=== PATIENT | female | born 1995 | race Asian ===

== ENCOUNTER 2023-04-26 17:23 | Outpatient (AMB) | payer BC, SELFPAY ==
[2023-04-26 17:27] VITALS: BP 102/68; BMI 20.1
--- NOTE | 2023-04-26 17:27 | A.OFFPC_ITS ---
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 Required: No Accompanied by: Self / Same As Patient Allergies No Known Allergies Allergy (Verified 04/26/23 17:31) Medication List - Last Reconciled 04/26/23 by Maria Teresa Mathews MD No Known Home Meds Tobacco use date assessed: 04/26/23 Dental Screening Dental Screen Date: 04/26/23 Did you have a dental visit in the last 12 months?: No Did you have a dental problem in the last 6 months where you did not have access to dental care?: No Was dental information given to patient?: Patient has dentist HPI HPI Comments History of Present Illness Details This is a 27-year-old female that comes for her physical exam. No luigi st pain or shortness of breath. Last Pap smear was a year ago while she was . Doing well. [facility] Surgical History No pertinent past surgical history Family History Mother Breast cancer, Onset Age: 55 Father Arthritis Social History Housing: Apartment Alcohol intake: never Patient Tobacco Use Status: Never used Tobacco e-Cigarette/Vaping Use: Never Used Second Hand Smoke Exposure: No service: No Current occupational status: unemployed Cognitive needs: No Hearing needs: No Vision needs: No Questionnaire PHQ-9 Over the last 2 weeks, how often have you been bothered by any of the following problems? 1. Little interest or pleasure in doing things: not at all 2. Feeling down, depressed, or hopeless: not at all 3. Trouble falling or staying asleep, or sleeping too much: not at all 4. Feeling tired or having little energy: not at all 5. Poor appetite or overeating: not at all 6. Feeling bad about yourself - or that you are a failure or have let yourself or your family down: not at all 7. Trouble concentrating on things, such as reading the newspaper or watching television: not at all 8. Moving or speaking so slowly that other people could have noticed. Or the opposite - being so fidgety or restless that you have been moving around a lot more than usual: not at all 9. Thoughts that you would be better off or of hurting yourself in some way: not at all Total score: 0 Depression Screening Interpretation: Negative Depression Screening Done: Yes 76568 - PHQ-9 Billing: Yes Source: Developed by Drs. Jose E James, Lucy Oconnell, Diomedes Ash and colleagues, with an educational oriana from [employer]. Thrive Questionnaire Date Thrive assessed: 04/26/23 I am a: Patient What is your living situation today?: I have a steady place to live Within the past 12 months, did the food you bought not last and you didn't have the money to get more?: Never true Within the past 12 months, did you worry whether your food would run out before you got money to buy more?: Never true Do you have trouble paying for medicines?: No Do you have trouble getting transportation to medical appointments?: No Do you have trouble paying your heating and electricity bill?: No Do you have trouble taking care of your child, family member or friend?: No Do you have trouble with day-to-day activities such as bathing, preparing meals, shopping, managing finances, etc.?: No Are you currently unemployed and looking for a job?: No Are you interested in more education?: No Please select the resources that you would like help with: None Currently or been in a relationship where the following occur: no concerns reported AUDIT C Alcohol Use Questionnaire (AUDIT-C) 1. How often do you have a drink containing alcohol?: Never Total Score: 0 JOHNNY-7 AMB Questionnaire JOHNNY-7 Date JOHNNY - 7 assessed: 04/26/23 Feeling nervous, anxious, or on edge: 0 = Not at all Not being able to stop or control worryin = Not at all Worrying too much about different things: 0 = Not at all Trouble relaxin = Not at all Being so restless that it is hard to sit still: 0 = Not at all Becoming easily annoyed or irritable: 0 = Not at all Feeling afraid as if something awful might happen: 0 = Not at all Total JOHNNY-7 score (0-4 normal; 5-9 mild; 10-14 moderate; 15-21 severe): 0 Source: Developed by Drs. Jose E James, Lucy Oconnell, Diomedes Ash and colleagues, with an educational oriana from [employer]. JOHNNY-7 Assessment Billing JOHNNY-7 Assessment Tool: JOHNNY-7 Assessment 04775 Review of Systems Const All systems reviewed & are unremarkable except as noted in HPI and below Eyes Reports no additional complaints, Denies change in vision and Denies other visual disturbances Card Denies chest pain at rest, Denies chest pain with activity, Denies edema, Denies irregular heart rhythm, Denies claudication, Denies dyspnea, Denies dyspnea on exertion, Denies orthopnea, Denies paroxysmal nocturnal dyspnea and Denies slow heart rate Resp Denies cough, Denies dyspnea and Denies dyspnea on exertion GI Denies abdominal pain, Denies change in bowel habits, Denies excessive flatus, Denies nausea and Denies vomiting Denies urinary incontinence, Denies urinary hesitancy and Denies urinary urgency Musc Denies abnormal gait, Denies atrophy, Denies deformity and Denies limited range of motion Skin/Breast Denies bleeding lesions, Denies changing lesions and Denies rash Neuro Denies abnormal gait and Denies lack of coordination Physical exam (Primary Care) Vital Signs: Last Vital Signs BP 102/68 04/26/23 17:27 BMI result Body Mass Index 20.1 Tobacco/Smoking Status: Tobacco use Status Tobacco use date assessed 04/26/23 04/26/23 17:32 Patient Tobacco Use Status Never used Tobacco 04/26/23 17:32 e-Cigarette/Vaping Use Never Used 04/26/23 17:32 PHQ-9: PHQ-9 Score PHQ-9: Total score 0 04/26/23 17:34 Depression Screening Interpretation: Negative Thrive Assessment: Date of Thrive Assessment Date Thrive assessed 04/26/23 04/26/23 17:32 Currently or been in a relationship where the following occur: no concerns re ported Const Orientation/consciousness: patient oriented x3 HENMT Head: Yes normal to inspection, Yes normocephalic and Yes atraumatic Ears: external ears normal Eyes General: appearance normal, both eyes and all related structures Eyelids: Yes eyelids normal Conjunctivae: conjunctivae normal Neck Neck: Yes normal visual inspection and Yes supple Resp Effort & Inspection: normal respiratory effort Auscultation: clear to auscultation bilaterally Cardio Jugular venous distension: no JVD Rate: regular rate Rhythm: regular rhythm Heart sounds: S1 normal heart sound present and S2 normal heart sound present GI Inspection: Yes normal to inspection Palpation (GI): Soft to palpation and nontender Auscultation: normal bowel sounds Skin General skin exam: no rashes or lesions noted Neuro General: patient oriented x3 and no focal motor deficits Extrem General: Yes full ROM Psych Appearance: grossly normal Office Procedures Flu Questionnaire Does the patient have a severe egg allergy?: No Immunizations flu vacc [id number] 6mos up(PF) 60 mcg(15 mcgx4)/0.5 mL IM syringe Performing Provider: Maria Teresa Mathews MD Performing Location: [facility] Documented (not given) by: CORNELIO Mckay on 04/26/23 17:33 Reason Not Given: Patient Refused Assessment and Plan Assessment & Plan (1) Physical exam: Code(s): Z00.00 - Encounter for general adult medical examination without abnormal findings Plan: Repeat in a year. Orders: Orders Influenza [id number] Immunization Today Z23 - Encounter for immunization Comprehensive [place]. Panel Fast Today Z00.00 - Encounter for general adult medical examination without abnormal findings Lipid Panel Today Z00.00 - Encounter for general adult medical examination without abnormal findings Coding Level of Care Code Est Pt Prev Care 18-39y(20894) Diagnoses Physical exam Z00.00 Additional Codes JOHNNY-7 Assessment Billing - JOHNNY-7 Assessment Tool: JOHNNY-7 Assessment 01999 ([id number]) Time Spent (min) 31
== END 2023-04-26 17:39 | disposition home or self-care (01) ==
LOC: HO.HMGH 17:23
PROVIDERS: PCP Internal Medicine; Visit Provider Internal Medicine
DX: Z00.00 Encounter for general adult medical examination without abnormal findings (principal)
CPT/HCPCS: 99395

== ENCOUNTER 2024-12-30 14:58 | Outpatient (AMB) | payer BC, SELFPAY ==
--- NOTE | 2024-12-30 15:02 | MHC.PC.OV ---
Vital Signs 12/30/24 15:03 Height 5 ft 1.5 in Weight 127 lb BMI 23.6 BP 92/64 Blood Pressure Location Lt brachial Position Sitting Intake Visit Reasons: numbness R side of skull Die Stamper Required: No Accompanied by: Self / Same As Patient Allergies No Known Allergies Allergy (Verified 12/30/24 15:12) Medication List - Last Reconciled 12/30/24 by Maria Teresa Mathews MD No Known Home Meds Tobacco use date assessed: 12/30/24 Dental Screening Dental Screen Date: 12/30/24 Did you have a dental visit in the last 12 months?: Yes Did you have a dental problem in the last 6 months where you did not have access to dental care?: No Was dental information given to patient?: Patient has dentist HPI HPI Comments History of Present Illness Details The patient is a 29-year-old female presenting with numbness in the right parietal area. The numbness has been present for a couple of years and is sometimes associated with colder weather. The patient denies any associated weakness, blurry vision, or tingling. The numbness is not constant and does not seem to be related to hairstyles or headwear. The patient has no history of allergies to medications or contrast, and she is not currently taking any medications. She recently had a baby five months ago and is currently nursing. [facility] Surgical History No pertinent past surgical history Family History Mother Breast cancer, Onset Age: 55 Father Arthritis Social History Housing: Apartment Alcohol intake: never Patient Tobacco Use Status: Never used Tobacco e-Cigarette/Vaping Use: Never Used Second Hand Smoke Exposure: No service: No Current occupational status: unemployed Cognitive needs: No Hearing needs: No Vision needs: No Questionnaire PHQ-9 Over the last 2 weeks, how often have you been bothered by any of the following problems? 1. Little interest or pleasure in doing things: not at all 2. Feeling down, depressed, or hopeless: not at all 3. Trouble falling or staying asleep, or sleeping too much: not at all 4. Feeling tired or having little energy: not at all 5. Poor appetite or overeating: not at all 6. Feeling bad about yourself - or that you are a failure or have let yourself or your family down: not at all 7. Trouble concentrating on things, such as reading the newspaper or watching television: not at all 8. Moving or speaking so slowly that other people could have noticed. Or the opposite - being so fidgety or restless that you have been moving around a lot more than usual: not at all 9. Thoughts that you would be better off or of hurting yourself in some way: not at all Total score: 0 Depression Screening Interpretation: Negative Depression Screening Done: Yes 89508 - PHQ-9 Billing: Yes Source: Developed by Drs. Jose E James, Lucy Oconnell, Diomedes Ash and colleagues, with an educational oriana from [employer]. Thrive Questionnaire Date Thrive assessed: 12/28/24 I am a: Patient What is your living situation today?: I have a steady place to live Within the past 12 months, did the food you bought not last and you didn't have the money to get more?: Never true Within the past 12 months, did you worry whether your food would run out before you got money to buy more?: Never true Do you have trouble paying for medicines?: No Do you have trouble getting transportation to medical appointments?: No Do you have trouble paying your heating and electricity bill?: No Do you have trouble taking care of your child, family member or friend?: No Do you have trouble with day-to-day activities such as bathing, preparing meals, shopping, managing finances, etc.?: No Are you currently unemployed and looking for a job?: Yes Are you interested in more education?: No Please select the resources that you would like help with: None Currently or been in a relationship where the following occur: I choose not to answer THRIVE Score: 0 AUDIT C Alcohol Use Questionnaire (AUDIT-C) 1. How often do you have a drink containing alcohol?: Never Total Score: 0 Score Reviewed/Action Taken: No JOHNNY-7 AMB Questionnaire JOHNNY-7 Date JOHNNY - 7 assessed: 12/30/24 Feeling nervous, anxious, or on edge: 0 = Not at all Not being able to stop or control worryin = Not at all Worrying too much about different things: 0 = Not at all Trouble relaxin = Not at all Being so restless that it is hard to sit still: 0 = Not at all Becoming easily annoyed or irritable: 0 = Not at all Feeling afraid as if something awful might happen: 0 = Not at all Total JOHNNY-7 score (0-4 normal; 5-9 mild; 10-14 moderate; 15-21 severe): 0 Source: Developed by Drs. Jose E James, Lucy Oconnell, Diomedes Ash and colleagues, with an educational oriana from [employer]. JOHNNY-7 Assessment Billing JOHNNY-7 Assessment Tool: JOHNNY-7 Assessment 64178 Review of Systems Const All systems reviewed & are unremarkable except as noted in HPI and below Card Denies chest pain at rest, Denies chest pain with activity, Denies edema, Denies irregular heart rhythm, Denies claudication, Denies dyspnea, Denies dyspnea on exertion, Denies orthopnea, Denies paroxysmal nocturnal dyspnea and Denies slow heart rate Resp Denies cough, Denies dyspnea and Denies dyspnea on exertion GI Denies abdominal pain, Denies change in bowel habits, Denies excessive flatus, Denies nausea and Denies vomiting Denies urinary incontinence, Denies urinary hesitancy and Denies urinary urgency Neuro Denies lack of coordination Physical exam (Primary Care) Vital Signs: Last Vital Signs BP 92/64 12/30/24 15:03 BMI result Body Mass Index 23.6 Tobacco/Smoking Status: Tobacco use Status Tobacco use date assessed 12/30/24 12/30/24 15:08 Patient Tobacco Use Status Never used Tobacco 12/30/24 15:08 e-Cigarette/Vaping Use Never Used 12/30/24 15:08 PHQ-9: PHQ-9 Score PHQ-9: Total score 0 12/30/24 15:16 Depression Screening Interpretation: Negative Thrive Assessment: Date of Thrive Assessment Date Thrive assessed 12/28/24 12/30/24 15:08 Currently or been in a relationship where the following occur: I choose not to answer Resp Effort & Inspection: normal respiratory effort Auscultation: clear to auscultation bilaterally Cardio Jugular venous distension: no JVD Rate: regular rate Rhythm: regular rhythm Heart sounds: S1 normal heart sound present and S2 normal heart sound present Neuro General: no focal motor deficits Extrem General: Yes full ROM Psych Appearance: grossly normal Coding Level of Care Code Est Pt Level 3 (22447) Complex EM visit Add On G2211 Diagnoses Numbness R20.0 Additional Codes JOHNNY-7 Assessment Billing - JOHNNY-7 Assessment Tool: JOHNNY-7 Assessment 22895 ([id number]) PHQ-9 - 16015 - PHQ-9 Billing: Yes ([id number]) Time Spent (min) 19 Assessment & Plan Assessment & Plan (1) Numbness: Code(s): R20.0 - Anesthesia of skin Category: Medical Plan An MRI of the brain has been ordered to evaluate the numbness in the right parietal area and rule out any underlying neurological conditions. The patient was informed that the MRI is safe while nursing and does not affect . Follow-up will be scheduled based on the MRI results to determine any further necessary interventions. Patient was informed and verbally consented to the use of an ambient scribe for clinic note documentation during this visit. Orders: Orders MR head/brain wo/w con Today R20.0 - Anesthesia of skin Patient Instructions: - Schedule an MRI of the brain as discussed. - Continue nursing as usual; the MRI will not affect . - Follow up with the doctor after the MRI results are available.
[2024-12-30 15:03] VITALS: BP 92/64; BMI 23.6
== END 2024-12-30 15:22 | disposition home or self-care (01) ==
LOC: HO.HMCH 14:59
PROVIDERS: PCP Internal Medicine; Visit Provider Internal Medicine
DX: R20.0 Anesthesia of skin (principal)

== ENCOUNTER → 2024-12-30 14:58 | Outpatient (BNVA) | payer BC, SELFPAY | PROVIDERS: PCP Internal Medicine; Visit Provider Internal Medicine | DX: R20.0 Anesthesia of skin (principal) | CPT/HCPCS: 96127 ==

== ENCOUNTER 2025-02-02 14:52 | Outpatient (REF) | payer BC, SELFPAY ==
--- NOTE | ~2025-02-02 | MR_ITS ---
CLINICAL HISTORY: R20.0 - Anesthesia of skin MR Brain without gadolinium Comparison: None provided Findings: No restricted diffusion. No intra-axial mass or hemorrhage. No midline shift. No hydrocephalus. Vascular flow voids are intact. The orbits are normal. The sinuses and mastoid air cells are clear. No focal bone lesion. IMPRESSION: No acute findings. No explanation for anesthesia. This document has been electronically signed by: Ashok Sr MD on 02/04/2025 14:46:59
== END 2025-02-02 14:53 | disposition home or self-care (01) ==
LOC: HO.MRI 14:52
PROVIDERS: Visit Provider Internal Medicine
DX: R20.0 Anesthesia of skin (principal)
CPT/HCPCS: 70551

== ENCOUNTER → 2025-02-02 15:05 | Outpatient (BNV) | payer BC, SELFPAY | PROVIDERS: Visit Provider Radiology Diagnostic Radiology | DX: R20.0 Anesthesia of skin (principal) | CPT/HCPCS: 70551 ==

== ENCOUNTER 2025-05-01 15:11 | Outpatient (AMB) | payer BC, SELFPAY ==
[2025-05-01 15:26] VITALS: BP 90/58; PULSE 73; RESP 18; TEMP 36.2; O2SAT 97; BMI 21.6
--- NOTE | 2025-05-01 15:26 | MHC.PC.OV ---
Vital Signs 05/01/25 15:26 Height 5 ft 1.5 in Weight 116 lb 6 oz BMI 21.6 BP 90/58 L Blood Pressure Location Lt brachial Position Sitting Respiration 18 Pulse 73 Pulse Source Pulse Oximeter Temp 97.1 F Temp Source Temporal Artery Scan Pulse Oximetry (%) 97 Oxygen Delivery Method Room Air Intake Visit Reasons: physical exam Brim Rounder Required: No Accompanied by: Self / Same As Patient Allergies No Known Allergies Allergy (Verified 05/01/25 15:37) Medication List - Last Reconciled 05/01/25 by Maria Teresa Mathews MD No Known Home Meds Tobacco use date assessed: 05/01/25 Dental Screening Dental Screen Date: 05/01/25 Did you have a dental visit in the last 12 months?: Yes Did you have a dental problem in the last 6 months where you did not have access to dental care?: No Was dental information given to patient?: Patient has dentist HPI HPI Comments History of Present Illness Details The patient is a 29-year-old female presenting for a physical examination and to discuss preventative care measures. She is uncertain about her last tetanus vaccination, estimating it was over five years ago, and did not receive the Tdap vaccine during her pregnancies. Her family history includes breast cancer in her mother, who at 55, and arthritis in her father. The patient does not smoke or drink alcohol and has no known allergies or current medications. She declined the flu vaccine and expressed reluctance towards vaccinations, although she received them in her youth. The patient has not completed baseline blood work previously ordered due to forgetfulness but is now willing to do so. Her last Pap smear was during her recent , approximately eight months ago, with normal results. [facility] Surgical History No pertinent past surgical history Family History Mother Breast cancer, Onset Age: 55 Father Arthritis Social History Housing: Apartment Alcohol intake: never Patient Tobacco Use Status: Never used Tobacco e-Cigarette/Vaping Use: Never Used Second Hand Smoke Exposure: No service: No Current occupational status: unemployed Cognitive needs: No Hearing needs: No Vision needs: No Questionnaire Thrive Questionnaire Date Thrive assessed: 12/28/24 I am a: Patient What is your living situation today?: I have a steady place to live Within the past 12 months, did the food you bought not last and you didn't have the money to get more?: Never true Within the past 12 months, did you worry whether your food would run out before you got money to buy more?: Never true Do you have trouble paying for medicines?: No Do you have trouble getting transportation to medical appointments?: No Do you have trouble paying your heating and electricity bill?: No Do you have trouble taking care of your child, family member or friend?: No Do you have trouble with day-to-day activities such as bathing, preparing meals, shopping, managing finances, etc.?: No Are you currently unemployed and looking for a job?: Yes Are you interested in more education?: No Please select the resources that you would like help with: None Currently or been in a relationship where the following occur: I choose not to answer THRIVE Score: 0 JOHNNY-7 AMB Questionnaire JOHNNY-7 Date JOHNNY - 7 assessed: 12/30/24 Source: Developed by Drs. Jose E James, Lucy Oconnell, Diomedes Ash and colleagues, with an educational oriana from [employer]. Review of Systems Const All systems reviewed & are unremarkable except as noted in HPI and below Card Denies chest pain at rest, Denies chest pain with activity, Denies edema, Denies irregular heart rhythm, Denies claudication, Denies dyspnea, Denies dyspnea on exertion, Denies orthopnea, Denies paroxysmal nocturnal dyspnea and Denies slow heart rate Resp Denies cough, Denies dyspnea and Denies dyspnea on exertion GI Denies abdominal pain, Denies change in bowel habits, Denies excessive flatus, Denies nausea and Denies vomiting Physical exam (Primary Care) Vital Signs: Last Vital Signs Temp 97.1 F 05/01/25 15:26 Pulse 73 05/01/25 15:26 Resp 18 05/01/25 15:26 BP 90/58 L 05/01/25 15:26 Pulse Ox 97 05/01/25 15:26 Oxygen Delivery Method Room Air 05/01/25 15:26 BMI result Body Mass Index 21.6 Tobacco/Smoking Status: Tobacco use Status Tobacco use date assessed 05/01/25 05/01/25 15:35 Patient Tobacco Use Status Never used Tobacco 05/01/25 15:35 e-Cigarette/Vaping Use Never Used 05/01/25 15:35 Thrive Assessment: Date of Thrive Assessment Date Thrive assessed 12/28/24 05/01/25 15:35 Currently or been in a relationship where the following occur: I choose not to answer [facility] Head: Yes normal to inspection, Yes normocephalic and Yes atraumatic Ears: external ears normal Eyes General: appearance normal, both eyes and all related structures Eyelids: Yes eyelids normal Conjunctivae: conjunctivae normal Neck Neck: Yes normal visual inspection and Yes supple Resp Effort & Inspection: normal respiratory effort Auscultation: clear to auscultation bilaterally Cardio Jugular venous distension: no JVD Rate: regular rate Rhythm: regular rhythm Heart sounds: S1 normal heart sound present and S2 normal heart sound present GI Inspection: Yes normal to inspection Palpation (GI): Soft to palpation and nontender Auscultation: normal bowel sounds Skin General skin exam: no rashes or lesions noted Neuro General: no focal motor deficits Extrem General: Yes full ROM Psych Appearance: grossly normal Coding Level of Care Code Est Pt Prev Care 18-39y(80873) Diagnoses Physical exam Z00.00 Time Spent (min) 30 Assessment & Plan Assessment & Plan (1) Physical exam: Code(s): Z00.00 - Encounter for general adult medical examination without abnormal findings Category: Medical Plan Plan 1. Encounter for general adult medical examination without abnormal findings Z00.00 The patient is advised to update her tetanus vaccination, as it has been over five years since her last known dose. Baseline blood work is recommended to assess sugar, kidney, liver, and cholesterol levels, which the patient agreed to complete. The patient had a normal Pap smear during her recent , approximately eight months ago. Orders: Orders Comprehensive [place]. Panel Fast Today Z00.00 - Encounter for general adult medical examination without abnormal findings Lipid Panel Today Z00.00 - Encounter for general adult medical examination without abnormal findings
== END 2025-05-01 15:56 | disposition home or self-care (01) ==
LOC: HO.HMCH 15:12
PROVIDERS: PCP Internal Medicine; Visit Provider Internal Medicine
DX: Z00.00 Encounter for general adult medical examination without abnormal findings (principal)